=== PATIENT | male | born 1960 | race Caucasian/White ===

== ENCOUNTER 2024-11-29 13:39 | Outpatient (CLI) | payer BC, OTHER, SELFPAY ==
--- NOTE | 2024-11-29 | ECG_ITS ---
Test Date: 2024-11-29 14:23:14 Measurements Intervals [place] Rate: 62 P: 45 AR: 143 QRS: -4 QRSD: 92 T: 20 QT: 366 QTc: 374 Interpretive Statements SINUS RHYTHM NORMAL ECG No previous ECG available for comparison Electronically Signed On 11-30-2024 07:59:40 CDT by Adryan Ching M.D.
--- OUTSIDE RECORDS SUMMARY | 2024-11-29 13:52 | XMS_ITS | Data Portability ---
Author Organization Chantale STEVE Address [address] [facility] [place] [address] Care Team Providers Care Supervisor Drying And Softening Name Role Phone EDGARD POWER Primary Care Provider Assessment Encounter Date Assessment Date Assessment LastModified by Organization Details LastModified Time 05/10/2024 05/10/2024 [facility] Continue current therapy for now. all questions answered hypertension hyperlipidemia low testosterone have been discussed continues to follow up with his workman's compensation injuries and because of some issues with his extremities to [facility] with the [facility] follow up with me in 6 months Not available 05/12/2024 17:34:31 Plan of Treatment Reminders Order Date Submit Date Provider Last Modified By Organization Details Last Modified Time Details Appointments None record ed. Lab None record ed. Referral None record ed. Procedures None record ed. Surgeries None record ed. Imaging None record ed. Medication Orders None record ed. Patient TargetsNo targets recorded. Patient InstructionsNo instructions recorded. Reason for Referral None Reported. Problems Name Problem SNOMED Code Status Onset Date Resolution Date Notes Provider Name and Address Organization Details Recorded Time Hypertensive disorder 15724200 Active 2023 Chantelle Barboza MA null, [place] - [facility] 10:49:36 Hypercholester olemia 95567318 Active 2023 Chantelle Barbo[place] [facility] 10:49:47 Osteoporosis 99202857 Active 2023 Chantelle Barbo[place], [place] [facility] 10:51:40 Essential hypertension 16325382 Active 2023 Edgard Power MD Attn: Blossom perez,[address] [facility], [place], [address], [place] [facility] 4 17:32:51 Hyperlipidemia 16608830 Active 2023 Edgard Power MD Attn: Blossom perez,[address] [facility], [place], [address], [place] [facility] 4 17:32:52 Intracranial aneurysm 390138663 Active 2023 Edgard Power MD Attn: Blossom perez,[address] [facility], [place], [address], [place] [facility] 4 17:32:53 Testosterone level below reference range 664604053 Active 2023 Edgard Power MD Attn: Blossom perez,[address] [facility], [place], [address], [place] [facility] 17:32:54 Osteoarthritis 776530796 Active 2023 Edgard Power MD Attn: Blossom perez,[address] [facility], [place], [address], [place] [facility] 17:33:09 Hemorrhoids 86011895 Active 2023 Edgard Power MD Attn: Blossom perez,[address] [facility], [place], [address], [place] [facility] 17:33:30 Problem Notes None recorded. Procedures Surgical History Date Name Laterality Status Provider Name and Address Organization Details Recorded Time 1 Angioplasty With Stent completed LEONIE Borrero - [facility] 05/10/2024 10:53:44 Knee Surgery completed LEONIE Borrero - [facility] 05/10/2024 10:53:53 procedure on shoulder completed Chantelle Barboza [facility] 05/10/2024 10:54:06 Imaging Results None recorded. Procedure Notes None recorded. Medical Equipment None Reported. Allergies No known drug allergies Medications Name Sig Start Date Stop Date Status Note LastModified by Organization Details LastModified Time atorvastatin 20 mg tablet Take 1 tablet every day by oral route. active Not Available Not Available No t Available oxycodone-acet aminophen 5 mg-325 mg tablet TAKE 1 OR 2 TABLETS BY MOUTH EVERY 4 TO 6 HOURS NEEDED FOR PAIN active Not Available Not Available No t Available tamsulosin 0.4 mg capsule active Not Available Not Available N ot Available lisinopril 10 mg tablet Take 1 tablet every day by oral route. active Not Available Not Available No t Available diclofenac sodium 75 mg tablet,delayed release TAKE 1 TABLET BY MOUTH EVERY 12 HOURS NEEDED active Not Available Not Available No t Available bisacodyl 5 mg tablet,delayed release active Not Available Not Available Not Available simethicone 80 mg chewable tablet active Not Available Not Available Not Available aspirin 81 mg capsule Take 1 capsule every day by oral route. active Not Available Not Available No t Available Vitals Date Recorded Body weight Body mass index (BMI) Body height Heart rate Oxygen saturation Oxygen saturation in Arterial blood by Pulse oximetry Systolic blood pressure Diastolic blood pressure Provider Name and Address Organization Details Last Updated DateTime 4 904912. 33 g 34 kg/m2 172.72 cm 58 /min 97 % 97 % 124 mm[Hg] 70 mm[Hg] Chantelle [facility]boza [facility] 10:56:32 Social History Question Answer Notes LastModified by Organizat ion Details LastModified Time Tobacco Smoking Status Former Smoker Chantelle Barboza MA [facility] 05/10/2024 10:52:37 Do You Have An Advance Directive? No Information not available 05/10/2024 Are You Blind Or Do You Have Difficulty Seeing? No Information not available 05/10/2024 What Is Your Level Of Caffeine Consumption? Occasional Coffee, Tea Information not available 05/10/2024 In The 14 Days Before Symptom Onset, Have You Had Close Contact With A Laboratory-confir med COVID-19 While That Case Was Ill? No Information not available 05/10/2024 In The 14 Days Before Symptom Onset, Have You Had Close Contact With A Person Who Is Under Investigation For COVID-19 While That Person Was Ill? No Information not available 05/10/2024 Have You Been To An Area Known To Be High Risk For COVID-19? No Information not available 05/10/2024 Are You Deaf Or Do You Have Serious Difficulty Hearing? Yes Information not available 05/10/2024 What Type Of Diet Are You Following? REGULAR Information not available 05/10/2024 Are There Any Guns Present In Your Home? No Information not available 05/10/2024 What Was The Date Of Your Most Recent Tobacco Screening? 05/10/2024 Information not available 05/10/2024 What Is Your Relationship Status? Information not available 05/10/2024 Do You Use Your Seat Belt Or Car Seat Routinely? Yes Information not available 05/10/2024 Do You Have Smoke And Carbon Monoxide Detectors In Your Home? Yes Information not available 05/10/2024 Do You Use Sunscreen Routinely? Yes Information not available 05/10/2024 Has Tobacco Cessation Counseling Been Provided? No Information not available 05/10/2024 Sex: Male Functional Status Question Answer Note LastModified by Organizat ion Details LastModified Time Do you use any illicit or recreational drugs? No Information not available 05/10/2024 Do you or have you ever used any other forms of tobacco or nicotine? No Information not available 05/10/2024 What is your level of alcohol consumption? None Information not available 05/10/2024 Are you currently employed? Yes Information not available 05/10/2024 Are you able to care for yourself? 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 None Information not available 05/10/2024 Mental Status Question Answer Note LastModified by Organization D etails LastModified Time Do you feel stressed (tense, restless, nervous, or anxious, or unable to sleep at night)? [id number] Information not available 05/10/2024 Family History Relationship Description Onset Age of this Age Resolved Age Notes LastModified by Organization Details LastModified Time Father Harmful pattern of use of alcohol mebyma Not available 2023 10:51:50 Mother Dementia mebyma Not available 1 10:51:57 Medical History Condition Response Coronary Artery Disease N Other N Atrial Fibrillation N High Blood Pressure Y Kidney or Bladder Problems N Thyroid Problems N GI Problems N Depression N COPD N Blood Clots Y Have you had a mammogram in the last yea r? N Skin Problems N Anemia N Heart Attack ([place]) N Anxiety Disorder N Diabetes N Muscle, Joint, or Bone Problems Y Seizures/Epilepsy N Have you had a colonoscopy in the last 1 0 years? N Acid Reflux (GERD) N Cancer N Stroke Y Asthma N Allergies N Have you had a PSA blood test in the las t year? N High Cholesterol Y Hepatitis N Liver Disease N Headaches N Heart Failure N Osteoporosis Y Past Encounters Encounter ID Performer Location Encounter Start Date Encounter Closed Date Diagnosis/Indication Diagnosis SNOMED-CT Code Diagnosis ICD10 Code Diagnosis Note [id number] MD Yady Barnard (Adult Med) [address] [place] [phone] 05/10/2024 10:31:13 05/10/2024 12:06:32 Essential hypertension 73371533 I10 Hyperlipidemia 81405862 E78.5 Intracranial aneurysm 12 3360419 I67.1 stented Testostero ne level below reference range 494853752 R89.1 Osteoarthritis 001526532 M19.90 Hemorrhoids 69694383 K64 .9 Health Concerns Section Related Observation LastModified by Organization Detai ls LastModified Time None Recorded Concern Status LastModified by Organization Details LastModified Time None Recorded Advance Directives Directive N: Payers Encounter Date Sequence Insurance Name Policy Number Policy Ull[place] Covered Member ID [place] Member ID Guarantor Name 05/10/2024 1 [place] [id number] Domingo Thakkar [id number] Domingo Thakkar 05/10/2024 2 FOR LIFE () Domingo Thakkar [id number] Domingo Thakkar Notes Date Note Type Note Provider Name and Address Organization Details Recorded Time 05/10/2024 text/html 64-year-old arvindi penelope in with a history of hyperlipidemia hypertension BPH who also has problems that are service connected he goes to the [place] he has some type of undisclosed problems with arms and legs then he says he has 80% service-connected for he also works for [employer] and suffered some type of fall and injury for which now he has a right shoulder and right knee issue that is being handled by work comp. Also history of low testosterone level in the past history of stroke secondary to a pseudo aneurysm that was stented at [facility] he also uses CPAP for AMY. Problem with hemorrhoidshypertens ion. Hyperlipidemia. History of pseudo aneurysm stented at [facility]. Service can activity for problems with arms and legs. Recent Workman's compensation injury on right shoulder and right leg. Low testosterone. BPH. Sleep apnea. Hemorrhoids.surgerie s ACL left knee and left shoulder surgery. Family history mother dementia and lung cancer. 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, [place], [address], [place] [facility] 05/12/2024 17:34:59
--- OUTSIDE RECORDS SUMMARY | 2024-11-29 13:52 | XMS_ITS ---
Author Name [facility] Organization [facility] Address [address] [place] [id number] Care Team Providers Care Aluminum Molder Name Role Phone CAROLYN PRAKASH Primary Care Provider Unavailabl e Selected Encounter This section includes the information on record at [place] for the Encounter. Date/Time Encounter Type Encounter Description Reason Provider Source May 28, 2024 09:30 AM OFF/OP CNSLTJ NEW/EST MOD 40 DERMATOLOGY ICD-10-CM L73.9 Follicular disorder, unspecified GIANFRANCO FREEDMAN IHRadha Encounter Template Text not used by [place] Assessments - Encounter Diagnoses This section includes the primary and secondary diagnoses documented for the Encounter. Date/Time Primary/Secondary Diagnosis Diagnosis Name Provider Source May 28, 2024 09:32 AM PRIMARY Follicular disorder, unspecified TERE FREEDMAN [facility] May 28, 2024 09:32 AM SECONDARY Encounter for screening for malignant neoplasm of skin TERE FREEDMAN [facility] May 28, 2024 09:32 AM SECONDARY Other melanin hyperpigmentation TERE FREEDMAN [facility] May 28, 2024 09:32 AM SECONDARY Other seborrheic keratosis TERE FREEDMAN [facility] Encounter Notes: All associated encounter notes This section contains the clinical notes associated to the Encounter. Date/Time Encounter Note(s) Provider Source May 28, 2024 09:18 AM DERMATOLOGY CONSUL T: LOCAL TITLE: DERMATOLOGY CONSULT [facility] STANDARD TITLE: DERMATOLOGY CONSULT DATE OF NOTE: MAY 28, 2024@09:18 ENTRY DATE: MAY 28, 2024@09:19:01 AUTHOR: GIANFRANCO FREEDMAN EXP COSIGNER: BEATRIZ ESTEVEZ URGENCY: STATUS: COMPLETED DERMATOLOGY CONSULT [facility] Has ADDENDA DERM CONSULT NOTE MARIA DEL CARMEN MELVIN is a 64 year MALE with no history of skin cancer presenting for CONSULTATION OF: Folliculitis kind of rash on all over back with minute pustules Today: - Scaly spots on arms - acne like rash on bakc that comes and goes Allergies: Patient has answered NKA ROS: all systems reviewed and were negative except as noted in the HPI OBJECTIVE Physical Examination - stuck on appearing brown papules on trunk/extremitites - red inflammatory pustule on back and chest - piedra macules scattered on trunk and extremitites otherwise: General Appearance: Well Appearing MALE, NAD Mood/Affect: pleasant/appropriate Face: WNL Ears: WNL Nose: WNL Forehead: WNL Scalp, Hair: no scale Neck: WNL Chest: WNL Abd: WNL Back: WNL Upper Extremities: WNL Nails/Hair: WNL ASSESSMENT AND PLAN # Folliculits - Start BPO wash and clinda lotion daily - Discussed possibly trying ketoconazole shampoo in future if not improving - PCP may refill these medications # Seborrheic Keratosis - benign, reasured # Lentigines - Patient reassured. Photoprotection including use of over the counter sunscreen SPF 30+ was reviewed. Recommend monthly self-skin checks and regular MD skin checks. -No additional lesions suspicious for skin cancer on areas examined. Pt phone: [phone] RTC as needed, patient encouraged to reach out if any new or change growths on skin. /kandice/ GIANFRANCO FREEDMAN III DERMATOLOGY RESIDENT Signed: 05/28/2024 09:32 /kandice/ BEATRIZ ESTEVEZ MD Dermatology Attending Physician Cosigned: 05/28/2024 10:36 05/28/2024 ADDENDUM STATUS: COMPLETED Patient interviewed and examined. Discussed case with resident. Agree with history, physical examination, assessment, and plan. Folliculitis on back. Favor bacterial over Pityrosporum but patient does endorse intermittent itching in the affected area. If not improving on topical antibiotics, consider topical antifungal. /kandice/ BEATRIZ ESTEVEZ MD Dermatology Attending Physician Signed: 05/28/2024 10:37 GIANFRANCO FREEDMAN [facility]
--- OUTSIDE RECORDS SUMMARY | 2024-11-29 13:52 | XMS_ITS | Data Portability ---
Author Organization [place] - [facility], Main Office Address [address] [place] [address] Assessment Encounter Date Assessment Date Assessment LastModified by Organization Details LastModified Time 04/27/2023 04/27/2023 HPI: 63-year-old male came in today for evaluation of his bilateral knee pain. He has been having pain left knee for years. He had ACL reconstruction by Dr. Son in 2018. since that time the knee has continued to be a little bit sore and painful for him. More recently in the last 6 weeks the right knee has started being symptomatic for him. It is painful or uncomfortable for him to get up from a seated position. Stairs are very painful. He has had no previous surgery or trauma to the right knee. 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 Patient will take ibuprofen 400mg when he is having pain in the knees and this will help quite a bit. Just does not take this regularly. Physical exam: 63-year-old male alert pleasant. He is 5 ft 6 221 lb his BMI is 35.7. He has irvs-dh-zmyfrtfm effusions in both knees. He has moderate pain with patellofemoral grind in both knees. Moderate tenderness over the medial joint lines to palpation both knees. No lateral joint line tenderness bilaterally. Hip range of motion is full without discomfort bilaterally. No swelling in either lower extremity. 2+ dorsalis pedis pulse in both feet. Hip range of motion is full without discomfort bilaterally. Negative Stinchfield maneuver bilaterally. Impression: 63-year-old male who has zkgz-iu-hmhsrqwf medial compartment osteoarthritis on the PA flexion view as well as both patellofemoral joints. I discussed x-ray findings with him. I discussed options including anti-inflammatori es as well as cortisone injections. He has had cortisone injections in the left knee in the past not on the right. At this point he is content to start utilizing the ibuprofen on a more regular basis to see if this will improve his symptoms. He feels that when he does take the ibuprofen helped quite a bit and he is just going to start taking it on a more regular basis to see if this controls his symptoms. If he has a flare-up in the future the option of cortisone injection is always there for him and he will keep that in mind. 30 minutes was spent treated patient more half of this in abot-gi-iwfy conversation [email or web address] Not available 04/27/2023 12:42:56 Plan of Treatment Reminders Order Date Submit Date Provider Last Modified By Organization Details Last Modified Time Details Appointments None record ed. Lab None record ed. Referral None record ed. Procedures None record ed. Surgeries None record ed. Imaging XR, knee 023 04/27/20 [email or web address] [facility], [address] [place] [address], [place], [address], 14:50:11 Medication Orders None record ed. Patient TargetsNo targets recorded. Patient InstructionsNo instructions recorded. Reason for Referral None Reported. Results Created Date Observation Date Name Description Value Unit Range Abnormal Flag Note LastModifiedBy Organization Detail LastModifiedTime 04/27/20 XR, knee No observ ation record ed. [email or web address] [facility] [address], [place], [address], 04/27/2023 12:39:43 Result Notes None recorded. 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 3745355395626 9106 Active 2020 Not Available [facility] 3 13:52:38 Benign prostatic hyperplasi a 264113482 Active 2020 Not Available [facility] 3 13:52:38 Knee pain Active Not Available [facility] 3 13:52:39 Hyperlipid emia 95032895 Active 2020 Not Available [facility] 3 13:52:39 Essential hypertensi on 88974890 Active 2020 Not Available [facility] 13:52:39 Pain in limb 70121751 Active Not Available [facility] 13:52:39 Pain of bilateral knee joints 7354952333311 04 Active 2022 Kenzie Cavazos, RMUzma null, [place] - [facility] 11:18:46 Problem Notes None recorded. Procedures Surgical History Date Name Laterality Status Provider Name and Address Organization Details Recorded Time reconstruction of anterior cruciate ligament of knee joint completed Not Available [facility] 09/14/2022 13:52:07 Stent completed Not Available [facility] 07/2022 13:52:07 extraction of wisdom tooth completed Not Available [facility] 09/14/2022 13:52:07 Shoulder completed Not Available [facility] 13:52:07 Tonsillectomy completed Not Available [facility] 09/14/2022 13:52:07 Imaging Results Imaging Date Name Status LastModified by Organiz ation Details LastModified Time 04/27/2023 XR, knee completed [email or web address] [facility] [address], [place], [address], 04/27/2023 12:39:43 Procedure Notes None recorded. Medical Equipment None Reported. Medications Name Sig Start Date Stop Date Status Note LastModified by Organization Details LastModified Time atorvastatin 40 mg tablet 04/27 completed Not Available Not Available Not Available atorvastatin 80 mg tablet active Not Available Not Available Not Available doxycycline hyclate 100 mg capsule Take 1 capsule twice a day by oral route for 7 days. 04/27 completed Not Available Not Available Not Available azithromycin 250 mg tablet 05/19 completed Not Available Not Available Not Available hydrocodone 5 mg-acetamino phen 325 mg tablet 05/19 completed Not Available Not Available Not Available lisinopril 20 mg tablet active Not Available Not Available Not Available prednisone 20 mg tablet 05/19 completed Not Available Not Available Not Available ketorolac 10 mg tablet 05/19 completed Not Available Not Available Not Available tamsulosin 0.4 mg capsule Take 1 capsule every day by oral route. 04/27 completed Not Available Not Available Not Available meclizine 25 mg tablet active Not Available Not Available No t Available diclofenac sodium 75 mg tablet,delay ed release 05/19 completed Not Available Not Available Not Available cefuroxime axetil 500 mg tablet 05/19 completed Not Available Not Available Not Available levofloxacin 500 mg tablet 05/19 completed Not Available Not Available Not Available hydrocodone 10 mg-chlorphen iramine 8 mg/5 mL oral susp extend.rel 12hr 05/19 completed Not Available Not Available Not Available lisinopril 40 mg tablet active Not Available Not Available Not Available cefdinir 300 mg capsule 05/19 completed Not Available Not Available Not Available fluticasone propionate 50 mcg/actuatio n nasal spray,suspen meet 05/19 completed Not Available Not Available Not Available Adult Low Dose Aspirin 81 mg tablet,delay ed release Take 1 tablet every day by oral route. 2020 active Not Available Not Available Not Avai lable AndroGel 20.25 mg/1.25 gram per pump act. (1.62 %) transdermal gel 05/19 completed Not Available Not Available Not Available Vitals Date Recorded Body mass index (BMI) Body height Heart rate Body temperature Body weight Systolic blood pressure Diastolic blood pressure Provider Name and Address Organization Details Last Updated DateTime 1 33 kg/m2 172.72 cm 58 /min 96.8 [degF] 20944.5 4 g 120 mm[Hg] 80 mm[Hg] Not Available [facility] 3 13:52:12 Date Recorded Body height Body mass index (BMI) Body weight Provider Name and Address Organization Details Last Updated DateTime 04/27/2023 167.64 cm 35.7 kg/m2 352441.91 g JEFF Ortiz [place] [facility] 04/27/2023 12:03:44 Social History Question Answer Notes LastModified by Organizat ion Details LastModified Time Tobacco Smoking Status Former Smoker Not Available [facility] 09/14/2022 13:51:59 Do You Have An Advance Directive? No [id number] Information not available 09/14/2022 What Is Your Level Of Caffeine Consumption? Moderate [id number].[id number] Information not available 09/14/2022 In The 14 Days Before Symptom Onset, Have You Had Close Contact With A Laboratory-confirm ed COVID-19 While That Case Was Ill? No [id number].[id number] 6521 Information not available 09/14/2022 In The 14 Days Before Symptom Onset, Have You Had Close Contact With A Person Who Is Under Investigation For COVID-19 While That Person Was Ill? No [id number] 3137 Information not available 09/14/2022 What Type Of Diet Are You Following? REGULAR [id number].[id number] 5237 Information not available 09/14/2022 When Did You Quit Smoking? 16+yearssince lastcigarette MIGRATION.006490 8225 Information not available 09/14/2022 Do You Have A Medical Power Of Calender Roll Operator? No [id number].807077 9424 Information not available 09/14/2022 What Was The Date Of Your Most Recent Tobacco Screening? 05/19/2021 [id number].[id number] 4095 Information not available 09/14/2022 At What Age Did You Start Smoking Tobacco? 20 MIGRATION.061302 3332 Information not available 09/14/2022 Have You Recently Traveled Abroad? No [id number].988855 3416 Information not available 09/14/2022 Do You Have Any Dietary Restrictions? No MIGRATION.172857 4121 Information not available 09/14/2022 Sex: Unknown Functional Status Question Answer Note LastModified by [employer] ion Details LastModified Time Do you use any illicit or recreational drugs? No MIGRATION.2712914 026 Information not available 09/14/2022 Do you or have you ever used any other forms of tobacco or nicotine? No MIGRATION.4147982 026 Information not available 09/14/2022 What is your level of alcohol consumption? Occasional [id number].0688684 026 Information not available 09/14/2022 What is your exercise level? Occasional [id number].[id number] 026 Information not available 09/14/2022 Mental Status None recorded. Family History Relationship Description Onset Age of this Age Resolved Age Notes LastModified by Organization Details LastModified Time Mother Dementia [id number] Not available 09/14/2022 13:52:08 Sister Heart disease Not available 2022 11:14:12 Medical History Condition Response ARTHRITIS Y USE OF BLOOD THINNERS Y STROKE/TIA Y Past Encounters Encounter ID Performer Location Encounter Start Date Encounter Closed Date Diagnosis/Indication Diagnosis SNOMED-CT Code Diagnosis ICD10 Code Diagnosis Note [id number] Edgard Power [facility] [address] [facility], [facility] [address] [place] [address] 05/19/2021 00:00:00 05/19/2021 22:22:02 [id number] Adrian Hitchcock MD [facility] [address] [place] [address] 04/27/2023 10:45:58 04/27/2023 12:45:00 Pain of bilateral knee joints 9293230053 53943 M25.561 Health Concerns Section Related Observation LastModified by Organization Detai ls LastModified Time None Recorded Concern Status LastModified by Organization Details LastModified Time None Recorded Advance Directives Directive N: Payers Encounter Date Sequence Insurance Name Policy Number Policy U[place] Covered Member ID Ull[place] Member ID Guarantor Name 04/27/2023 1 [place] [id number] Domingo Thakkar [id number] Domingo Thakkar 04/27/2023 2 [facility] () Domingo Thakkar [id number] Domingo Thakkar
--- OUTSIDE RECORDS SUMMARY | 2024-11-29 13:52 | XMS_ITS | Clinical Summary ---
Author Organization [facility] Address [address] [place] [address] Care Team Providers Care Curriculum Development Manager Name Role Phone Sheldon Bonilla MD Primary Care Provider [phone] Source Comments [facility],non-owned Affiliates and Associated Physician Practices is amultiple site organization consisting of ambulatory clinics and hospital sitesin [place], [place], [place] and [place]. This disclosure is being madepursuant to the Care Everywhere program and may not contain all information available regarding this patient. Last updated 18.[facility] Allergies No known active allergies Medications * Be aware that medications may not be up to date on this document. Alwaysverify current medications with the patient. diclofenac sodium EC (Voltaren) 75 MG tablet Take 1 (one) tablet by mouth every 12 hours as needed 20 tablet 05/01/2024 Active Social History Tobacco Use Types Packs/Day Years Used Date Smoking Tobacco: Never Assessed Sex and Gender Information Value Date Recorded Sex Assigned at Not on file Legal Sex Male 2:58 PM CDT Gender Identity Not on file Sexual Orientation Not on file Last Filed Vital Signs Vital Sign Reading Time Taken Comments Blood Pressure 130/91 05/01/2024 7:26 PM CDT Pulse 68 05/01/2024 7:26 PM CDT Temperature 36.7 C (98.1 F) 05/01/2024 7:26 PM CDT Respiratory Rate 18 05/01/2024 7:26 PM CDT Oxygen Saturation 96% 05/01/2024 7:26 PM CDT Inhaled Oxygen Concentration - - Weight - - Height - - Body Mass Index - - Plan of Treatment Health Maintenance Due Date Last Done Comments COLOGUARD (AGES 45-75) - COL ON CA SCREENING 1962 COLON MONITORING 1962 COLONOSCOPY - COLON CA SCREENING 1962 CT COLONOGRAPHY - COLON CA SCREENING 1962 Colorectal Cancer Screening 1962 FIT - COLON CA SCREENING 1962 FLEX SIG - COLON CA SCREENING 1962 LIPID TESTING 1962 HIV SCREENING 1977 HEPATITIS C SCREENING 03/26/1980 DTAP/TDAP/TD VACCINES (1 - Tdap) 1981 PNEUMOCOCCAL VACCINE 50+ (1 of 1 - PCV) 2012 ZOSTER VACCINE (1 of 2) 2012 Respiratory Syncytial Virus (RSV) Vaccine Pt: or over 60 yrs (1 - Risk 60-74 years 1-dose series) 2022 COVID-19 VACCINE ( - 2023-2 5 season) 2024 DEPRESSION SCREENING 07/17/2024 INFLUENZA VACCINE (Season Ended) 2025 05/20/20 09 HEPATITIS B VACCINE Aged Out No longe r eligible based on patient's age to complete this topic HIB VACCINE Aged Out No longer eligi ble based on patient's age to complete this topic HPV VACCINE Aged Out No longer eligi ble based on patient's age to complete this topic MENINGOCOCCAL (Group B) VACC INE SHARED DECISION-MAKING Aged Out No longer eligibl e based on patient's age to complete this topic MENINGOCOCCAL GROUPS A/C/Y/W VACCINE Aged Out No longer eligible b ased on patient's age to complete this topic Insurance [facility] Address: [facility] [id number] [place] [address] Member Subscriber Plan / Payer (Ef fective 2024-Present) Name:Ariane Domingo Purcell Member ID:Not on file Relation to Subscriber:Employee Name:[id number] JAMES Date of :1897 (Home) Address: [place] [address] Payer ID:Not on file Group ID:Not on file Type:Worker's Comp Address: [place] [id number] [employer] Care Teams Curriculum Development Manager Relationship Specialty Start Date End Date Sheldon Bonilla MD [address] [place] [address] PCP - General 01/07/19
--- OUTSIDE RECORDS SUMMARY | 2024-11-29 13:52 | XMS_ITS | Encounter Summary ---
Author Name [facility] Address [address] [place] [address] Care Team Providers Care Gaming Director Name Role Phone CAROLYN PRAKASH Primary Care Provider Unavailabl e Selected Encounter This section includes the information on record at [place] for the Encounter. Date/Time Encounter Type Encounter Description Reason Pro vider Source May 23, 2024 02:41 PM Outpatient Encounter ADMIN PAT ACTIVTIES (MASNONCT) IHE Encounter Template Text not used by [place] Plan of Treatment: Future Appointments (+ 6 months) and Future Tests (+/- 45 days) The Plan of Treatment section includes future care activities for the patient from all [place] treatmentfacilities. This section includes future appointments and future orders which are active, pending or scheduled. Future Appointments This section includes appointments that were scheduled to occur 6 months from the date of the Encounter, up to a maximum of 20 appointments. The data comes from all [place] treatment facilities. Appointment Date/Time Appointment Type Appointme nt Facility Name May 28, 2024 09:30 AM AMBULATORY - MEDICINE [facility] Social History: Smoking Status (Most current) and Tobacco Use (All prior to encounter date) This section includes the most current, and the historical, smoking and tobacco- related health factors from the [facility] facility where the Encounter took place. Current Smoking Status This section includes the most current smoking, or tobacco-related health factor, from the [place] facility where the Encounter took place. Date/Time Current Smoking Status Comment Facil gian Dec 18, 2006 09:44 AM QUIT TOBACCO >7 YEARS AGO [facility] Encounter Notes: All associated encounter notes This section contains the clinical notes associated to the Encounter. Date/Time Encounter Note(s) Provider Source May 23, 2024 02:41 PM ADMINISTRATIVE NOT E: LOCAL TITLE: ADMINISTRATIVE STL STANDARD TITLE: ADMINISTRATIVE NOTE DATE OF NOTE: MAY 23, 2024@14:41 ENTRY DATE: MAY 23, 2024@14:41:34 AUTHOR: HORTENCIA TRUJILLO EXP COSIGNER: URGENCY: STATUS: COMPLETED ADMINISTRATIVE STL Has ADDENDA DOMINGO THAKKAR [address] [place] [address] Dear Domingo Thakkar, [email or web address] Thank you for choosing the [facility] as your primary choice for health care. We are attempting to contact you to schedule the: Airborne Hazard and Open Burn Pit Registry Exam Please call us at [phone] to speak to us regarding making an appointment In the [facility]. If you received this letter after you have spoken to us, please disregard this letter. Sincerely, Environmental Health Registry Program /kandice/ HORTENCIA TRUJILLO [facility] Signed: 05/23/2024 14:42 10/04/2024 ADDENDUM STATUS: COMPLETED 2nd or more attempt to contact the by phone and letter to offer the Environmental Health Registry Airborne Hazard and Open Burn Pit Examination. /edna TRUJILLO [facility] Signed: 10/04/2024 12:59 HORTENCIA TRUJILLO [facility]
--- OUTSIDE RECORDS SUMMARY | 2024-11-29 13:52 | XMS_ITS | Encounter Summary ---
Author Organization [facility] Address [address] [facility] [place] [address] Care Team Providers Care Director Pharmacology Name Role Phone Sheldon Bonilla MD Primary Care Provider [phone] Encounter Details Date Type Department Care Team (Late st Contact Info) Description 01/08/2019 Lab Requisition [facility] [address] [place] [address] Regine Flores DO [address] [facility] [address] [place] [address] Social History Tobacco Use Types Packs/Day Years Used Date Smoking Tobacco: Never Assessed Sex and Gender Information Value Date Recorded Sex Assigned at Not on file Legal Sex Male 2:58 PM CDT Gender Identity Not on file Sexual Orientation Not on file documented as of this encounter Plan of Treatment Not on file documented as of this encounter Procedures Procedure Name Priority Date/Time Associated Diagnosis Comments DERMATOPATHOLOGY Routine 01/07/2019 12:0 0 AM CDT documented in this encounter Results * DERMATOPATHOLOGY (01/07/2019 12:00 AM CDT) Case Report Dermatopathology Report Case: [id number] Authorizing Provider: Regine Flores DO Collected: 01/07/2019 12:00 AM Pathologist: Shell Damon MD Received: 01/08/2019 07:27 AM Specimens: A) - Skin, left back B) - Skin, right upper arm 12:[address] [facility] D[facility]ORAT[facility] Final Diagnosis Specimen A. SKIN, left back: BENIGN VERRUCOUS KERATOSIS (L82.1) Specimen B. SKIN, right upper arm: BENIGN VERRUCOUS KERATOSIS (L82.1) 12:50 PM T DERMATOPATHOLOGY LABORATORY Clinical History A-B: ISK R/O atypia. 12:50 PM T DERMATOPATHOLOGY LABORATORY Gross Description Specimen A: Received is one formalin filled container labeled with the patient's name and designated left back. The specimen consists of a shave measuring 3u9u6fr. Jar 0. Specimen B: Received is one formalin filled container labeled with the patient's name and designated right upper arm. The specimen consists of a shave measuring 81q7w3ii. Jar 0. 12:[address] [facility] DERMATOPATHOLOGY [facility]ORATORY Microscopic Description Specimen A. SKIN, left back: Sections show hyperkeratosis, papillomatosis, hypergranulosis, and acanthosis. These histological findings can be seen in a verruca vulgaris or a seborrheic keratosis. Specimen B. SKIN, right upper arm: Sections show hyperkeratosis, papillomatosis, hypergranulosis, and acanthosis. These histological findings can be seen in a verruca vulgaris or a seborrheic keratosis. 12:50 PM T DERMATOPATHOLOGY LABORATORY Disclaimer An external and internal positive and negative controls are appropriate for the histochemical, immunohistochemical and immunofluorescence stain(s) in this case (if any), except where stated explicitly. The performance characteristics of the stain(s) cited in this report were developed and its performance characteristic determined by the Dermatopathology Laboratory at [facility], directed by Dr. Jaelyn Valdez. These tests need not be, and therefore are not, approved by the [place] Food and Drug Administration. The tests are used for clinical purposes. Billing Codes Specimen Charges Stain Charges 42109 93195 1 1 12:50 PM CDT DERMATOPATHOLOGY LABORATORY Embedded Images 12:50 PM T DERMATOPATHOLOGY LABORATORY Pathology/Cytology TISSUE SPECIMEN FROM SKIN / Unknown 01/07/2019 01/08/2019 7:27 AM CDT Miscellaneous samples (specimen) TISSUE SPECIMEN FROM SKIN / Unknown 01/07/2019 01/08/2019 7:27 AM CDT us Regine Erickaketan Flores DO LAB - PATHOLOGY/CYTOLOGY ORDERABLES Final Result DERMATOPATHOLOGY LABORATORY [facility] - Department of Dermatology [address] [place] [address] [address] [phone] documented in this encounter Visit Diagnoses Not on filedocumented in this encounter Care Teams Director Pharmacology Relationship Specialty Start Date End Date Sheldon Bonilla MD [address] [place] [address] PCP - General 01/07/19 documented as of this encounter
--- OUTSIDE RECORDS SUMMARY | 2024-11-29 13:52 | XMS_ITS | Continuity of Care Document ---
Author Organization [facility] Address [address] [place] [address] Phone Care Team Providers Care Audit Clerks Supervisor Name Role Phone Benavidez OD, Erlin Unavailable Unavailable Procedures Procedure Date Eye Exam, New Patient Refraction Advance Directives Directive Yes / No Effective Date File Name No Information Encounters Encounter Description Practice Location Reason(s) For Visit Diagnoses Date Provider Providers Copied on Encounter [facility], [address], [place], [place], [address], [place] tel:[phone] [facility] [place] No Information [phone] Benavidez OD Erlin. [address] , [address], [place], [address], [place]. tel:[phone] Family History Family Member Type Diagnosis Age At Onset No Information Payers Payer name Insurance type Covered constitution party ID Authoriza tion(s) [employer] Plan CI [id number] Social History Type Description Quantity Date Captured Comments Sex Male Smoking Status No Information Chief Complaint And Reason For Visit No Information Reason For Referral Reason For Referral No Information History Of Present Illness Encounter Date Complaint History Of Prese nt Illness No Information Functional Status Date Functional Assessmen t No Information Instructions Date Instruction Additional Infor mation No Information Assessments Type Assessment Date No Information Patient Care Teams Name Effective Dates (start - stop) Status Members No Information
--- OUTSIDE RECORDS SUMMARY | 2024-11-29 13:53 | XMS_ITS | Continuity of Care Document ---
Author Name [facility] Organization [facility] Care Team Providers Care Food Service Name Role Phone [facility] Unavailable Unavailable Problems Combined list of problems from Department of [facility] and [facility] facilities. It does not include entries that were removed or entered in error. Problem Status Onset Date Problem Type Date of Resolution Comments Source Aneurysm * (ICD-9-CM 442.9) Active Condition [facility] Benign enlargement of prostate Active Condition [facility] Essential hypertension Active Condition [facility] Exposure to potentially hazardous substance Active Condition [facility] HYPERCHOLESTEROLEMIA Active Condition [facility] Hyperlipidemia Active Condition [facility] Liver function tests abnormal Active Condition [facility] Obesity Active Condition [facility] Obstructive sleep apnea Active Condition [facility] Prediabetes Active Condition [facility] Vertigo Active Condition [facility] Diagnosis: ICD-10-CM L73.9 Follicular disorder, unspecified Active Diagnosis [facility] Diagnosis: ICD-10-CM Z71.9 Counseling, unspecified Active Diagnosis [facility] Diagnosis: ICD-10-CM I10 Essential (primary) hypertension Active Diagnosis [facility] Diagnosis: ICD-10-CM Z12.11 Encounter for screening for malignant neoplasm of colon Active Diagnosis [facility] Medications Combined list of outpatient medications from Department of [facility] and [facility] facilities.Medications provided include 1) outpatient medications from the last 15 months, and 2) patient-reported medications. Medication Details Route Status Patient Instructions Prescription Expires Prescription Number Last Dispense Date Ordering Provider Order Date Order Qty Source ASPIRIN 81MG TAB,EC TAKE ONE TABLET BY MOUTH ONCE A DAY ORAL ACTIVE OLINDA,KAMARI A D 2021 [facility] atorvastati n (U/D) 80 MG ORAL TAB TAKE ONE-HALF TABLET BY MOUTH EVERY EVENING TO LOWER CHOLESTE ROL 04/25/2024 [id number] CAROLYN PRAKASH 2023 45 [facility] Divis[facility] n ATORVASTATI N CA 80MG TAB TAKE ONE-HALF TABLET BY MOUTH EVERY EVENING TO LOWER CHOLESTE ROL ORAL ACTIVE 04/06/2025 [id number] 4 KAMARI PRAKASH 2023 45 [facility] ATORVASTATI N CA 80MG TAB TAKE ONE-HALF TABLET BY MOUTH EVERY EVENING TO LOWER CHOLESTE ROL ORAL DISCONT INUED 04/25/2024 [id number] 4 KAMARI PRAKASH 2022 45 [facility] BENZOYL PEROXIDE 5% WASH WASH SMALL AMOUNT TO AFFECTED AREA(S) ONCE A DAY FOR FOLLICUL ITIS TOPICA L ACTIVE 05/29/2025 [id number] 4 DL FREEDMAN 2023 150 [facility] CLINDAMYCIN PO4 1% LOTION APPLY LIBERALL Y TO AFFECTED AREA(S) ONCE A DAY FOR FOLLICUL ITIS TOPICA L ACTIVE 05/29/2025 [id number] DL FREEDMAN 2023 60 [facility] DICLOFENAC NA 1% GEL,TOP APPLY 4 GM TO AFFECTED AREA(S) FOUR TIMES A DAY NEEDED DO NOT EXCEED MORE THAN 16 GRAMS DAILY TO ANY LOWER EXTREMIT Y JOINT. NOT MORE THAN 8 GRAMS DAILY TO ANY UPPER EXTREMIT Y JOINT. MAX 32GM/DAY OVER ALL JOINTS. (MEASURE DOSE WITH RULER ATTACHED INSIDE BOX) TOPICA L ACTIVE 04/06/2025 [id number] 4 KAMARI PRAKASH D 2023 300 [facility] FLOMAX (BRAND) 0.4 MG ORAL CAP TAKE ONE CAPSULE BY MOUTH EVERY EVENING APPROXIM ATELY 30 MINUTES AFTER THE SAME MEAL EACH DAY (FOR PROSTATE ) 04/25/2024 [id number] 4 CAROLYN PRAKASH 2023 90 [facility] Divisio n FLOMAX (BRAND) 0.4 MG ORAL CAP TAKE ONE CAPSULE BY MOUTH EVERY EVENING APPROXIM ATELY 30 MINUTES AFTER THE SAME MEAL EACH DAY (FOR PROSTATE ) 04/25/2024 [id number] 4 CAROLYN PRAKASH 2023 30 [facility] Divis[facility] n lisinopril (U/D) 20 MG ORAL TAB TAKE ONE-HALF TABLET BY MOUTH ONCE A DAY FOR HEART OR BLOOD PRESSURE 04/25/2024 [id number] CAROLYN PRAKASH 2023 45 [facility] Divis[facility] n LISINOPRIL 20MG TAB TAKE ONE-HALF TABLET BY MOUTH ONCE A DAY FOR HEART OR BLOOD PRESSURE ORAL ACTIVE 04/06/2025 [id number] 4 KAMARI PRAKASH 2023 45 [facility] LISINOPRIL 20MG TAB TAKE ONE-HALF TABLET BY MOUTH ONCE A DAY FOR HEART OR BLOOD PRESSURE ORAL DISCONT INUED 04/25/2024 [id number] 4 KAMARI PRAKASH 2022 45 [facility] TAMSULOSIN HCL 0.4MG CAP TAKE ONE CAPSULE BY MOUTH EVERY EVENING APPROXIM ATELY 30 MINUTES AFTER THE SAME MEAL EACH DAY (FOR PROSTATE ) ORAL ACTIVE 04/06/2025 [id number] 4 KAMARI PRAKASH 2023 90 [facility] TAMSULOSIN HCL 0.4MG CAP TAKE ONE CAPSULE BY MOUTH EVERY EVENING APPROXIM ATELY 30 MINUTES AFTER THE SAME MEAL EACH DAY (FOR PROSTATE ) ORAL DISCONT INUED 04/25/2024 [id number] 4 KAMARI PRAKASH 2023 90 [facility] TAMSULOSIN HCL 0.4MG CAP TAKE ONE CAPSULE BY MOUTH EVERY EVENING APPROXIM ATELY 30 MINUTES AFTER THE SAME MEAL EACH DAY (FOR PROSTATE ) ORAL DISCONT INUED 04/25/2024 [id number] 4 KAMARI PRAKASH 2022 30 [facility] Immunizations Combined list of available immunizations from the Department of Defense and Veterans Affairs facilities. Immunization Series Date Given Administered By Site Reaction Lot Number CVX Code Drug Oncology Consultant Status Comments Source TDAP 2020 115 complet ed [facility] INFLUENZA, UNSPECIFIED FORMULATION 2008 88 complet ed [facility] Results Combined list of recent chemistry, hematology and other laboratory results from Department of Defense and Veterans Affairs, ranging from 15 months to all on record, depending upon the facility. Order Name Results Value Reference Range Date Interpretation Specimen Comments Source OCCULT BLOOD FIT X1 SCREEN HEMOGLOBIN .GASTROINT ESTINAL.LO WER [PRESENCE] IN STOOL BY IMMUNOASSA Y Negative 04/13 Specimen Type: FECES No comment entered. Ordering Provider: CAROLYN PRAKASH Report Released Date/Time: Apr 05, 2024 11:33 AM Reporting Lab: [facility] [address] [place] [phone] Performing Lab: [address] [address] [facility] TSH (MA-PB) THYROTROPI N [UNITS/VOL UME] IN SERUM OR PLASMA 1.671 u[IU]/mL 0.47 - 5 04/02 Specimen Type: SERUM Comment: The listed sex of this patient may not be a typical indication for this test. Therefore, reference ranges or interpretiv e criteria listed may not be valid. Clinical correlation suggested. Ordering Provider: CAROLYN PRAKASH Report Released Date/Time: Apr 25, 2023 11:15 AM Reporting Lab: [facility] [address] [place] [phone] Performing Lab: [facility] [address] [place] [phone] [facility] COMPREHE NSIVE METABOLI C PANEL CREATININE [MASS/VOLU ME] IN SERUM OR PLASMA 0.92 mg/dL 0.7 - 1.3 04/02 Specimen Type: PLASMA Comment: No hemolysis noted. Ordering Provider: CAROLYN PRAKASH Report Released Date/Time: Apr 25, 2023 11:15 AM Reporting Lab: [facility] [address] [place] [phone] Performing Lab: [facility] [address] [place] [phone] [facility] COMPREHE NSIVE METABOLI C PANEL UREA NITROGEN [MASS/VOLU ME] IN SERUM OR PLASMA 16.5 mg/dL 9.0 - 25.0 04/02 Specimen Type: PLASMA Comment: No hemolysis noted. Ordering Provider: CAROLYN PRAKASH Report Released Date/Time: Apr 25, 2023 11:15 AM Reporting Lab: [facility] [address] [facility] [address] Performing Lab: [address] [address] [facility] COMPREHE NSIVE METABOLI C PANEL GLUCOSE [MASS/VOLU ME] IN SERUM OR PLASMA 110 mg/dL 72 - 99 04/02 H Specimen Type: PLASMA Comment: No hemolysis noted. Ordering Provider: CAROLYN PRAKASH Report Released Date/Time: Apr 25, 2023 11:15 AM Reporting Lab: [address] [address] Performing Lab: [address] [address] [facility] COMPREHE NSIVE METABOLI C PANEL SODIUM [MOLES/VOL UME] IN SERUM OR PLASMA 137 meq/L 136 - 145 04/02 Specimen Type: PLASMA Comment: No hemolysis noted. Ordering Provider: CAROLYN PRAKASH Report Released Date/Time: Apr 25, 2023 11:15 AM Reporting Lab: [address] [address] Performing Lab: [address] [address] [facility] COMPREHE NSIVE METABOLI C PANEL POTASSIUM [MOLES/VOL UME] IN SERUM OR PLASMA 4.3 meq/L 3.5 - 5 04/02 Specimen Type: PLASMA Comment: No hemolysis noted. Ordering Provider: CAROLYN PRAKASH Report Released Date/Time: Apr 25, 2023 11:15 AM Reporting Lab: [address] [address] Performing Lab: [place] [phone] [facility] COMPREHE NSIVE METABOLI C PANEL CHLORIDE [MOLES/VOL UME] IN SERUM OR PLASMA 106 meq/L 98 - 107 04/02 Specimen Type: PLASMA Comment: No hemolysis noted. Ordering Provider: CAROLYN PRAKASH Report Released Date/Time: Apr 25, 2023 11:15 AM Reporting Lab: [facility] [address] [facility] [address] Performing Lab: [facility] [address] [facility] [address] [facility] COMPREHE NSIVE METABOLI C PANEL CARBON DIOXIDE, TOTAL [MOLES/VOL UME] IN SERUM OR PLASMA 23 meq/L 22 - 31 04/02 Specimen Type: PLASMA Comment: No hemolysis noted. Ordering Provider: CAROLYN PRAKASH Report Released Date/Time: Apr 25, 2023 11:15 AM Reporting Lab: [facility] [address] [facility] [address] Performing Lab: [facility] [address] [facility] [address] [facility] COMPREHE NSIVE METABOLI C PANEL CALCIUM [MASS/VOLU ME] IN SERUM OR PLASMA 9.4 mg/dL 8.4 - 10.4 04/02 Specimen Type: PLASMA Comment: No hemolysis noted. Ordering Provider: CAROLYN PRAKASH Report Released Date/Time: Apr 25, 2023 11:15 AM Reporting Lab: [facility] [address] [facility] [address] Performing Lab: [facility] [address] [facility] [address] [facility] COMPREHE NSIVE METABOLI C PANEL PROTEIN [MASS/VOLU ME] IN SERUM OR PLASMA 7.2 g/dL 6 - 8.6 04/02 Specimen Type: PLASMA Comment: No hemolysis noted. Ordering Provider: CAROLYN PRAKASH Report Released Date/Time: Apr 25, 2023 11:15 AM Reporting Lab: [facility] [address] [facility] [address] Performing Lab: [facility] [address] [facility] [address] [facility] COMPREHE NSIVE METABOLI C PANEL ALBUMIN [MASS/VOLU ME] IN SERUM OR PLASMA 4.3 g/dL 3.4 - 5 04/02 Specimen Type: PLASMA Comment: No hemolysis noted. Ordering Provider: CAROLYN PRAKASH Report Released Date/Time: Apr 25, 2023 11:15 AM Reporting Lab: [address] [address] Performing Lab: [address] [phone] [place] [address] COMPREHE NSIVE METABOLI C PANEL BILIRUBIN. TOTAL [MASS/VOLU ME] IN SERUM OR PLASMA 1.1 mg/dL 0.2 - 1.2 04/02 Specimen Type: PLASMA Comment: No hemolysis noted. Ordering Provider: CAROLYN PRAKASH Report Released Date/Time: Apr 25, 2023 11:15 AM Reporting Lab: [address] [phone] Performing Lab: [address] [address] [facility] COMPREHE NSIVE METABOLI C PANEL ALKALINE PHOSPHATAS E [ENZYMATIC ACTIVITY/V OLUME] IN SERUM OR PLASMA 62 U/L 40 - 150 04/02 Specimen Type: PLASMA Comment: No hemolysis noted. Ordering Provider: CAROLYN PRAKASH Report Released Date/Time: Apr 25, 2023 11:15 AM Reporting Lab: [facility] [address] [place] [phone] Performing Lab: [address] [address] [facility] COMPREHE NSIVE METABOLI C PANEL ASPARTATE AMINOTRANS FERASE [ENZYMATIC ACTIVITY/V OLUME] IN SERUM OR PLASMA 33 U/L 5 - 34 04/02 Specimen Type: PLASMA Comment: No hemolysis noted. Ordering Provider: CAROLYN PRAKASH Report Released Date/Time: Apr 25, 2023 11:15 AM Reporting Lab: [address] [address] Performing Lab: [address] [address] [facility] COMPREHE NSIVE METABOLI C PANEL ALANINE AMINOTRANS FERASE [ENZYMATIC ACTIVITY/V OLUME] IN SERUM OR PLASMA 43 U/L 8 - 40 04/02 H Specimen Type: PLASMA Comment: No hemolysis noted. Ordering Provider: CAROLYN PRAKASH Report Released Date/Time: Apr 25, 2023 11:15 AM Reporting Lab: [address] [phone] Performing Lab: [address] [phone] [place] [address] COMPREHE NSIVE METABOLI C PANEL GLOMERULAR FILTRATION RATE/1.73 SQ M.PREDICTE D [VOLUME RATE/AREA] IN SERUM, PLASMA OR BLOOD BY CREATININE -BASED FORMULA (CKD-EPI 2020) 94.1 60 04/02 Specimen Type: PLASMA Comment: No hemolysis noted. Ordering Provider: CAROLYN PRAKASH Report Released Date/Time: Apr 25, 2023 11:15 AM Reporting Lab: [address] [address] Performing Lab: [address] [address] [facility] LIPID PANEL (STL) CHOLESTERO L [MASS/VOLU ME] IN SERUM OR PLASMA 204 mg/dL 0 - 200 04/02 H Specimen Type: PLASMA Comment: No hemolysis noted. Ordering Provider: CAROLYN PRAKASH Report Released Date/Time: Apr 25, 2023 11:15 AM Reporting Lab: [address] [address] Performing Lab: [address] [address] [facility] LIPID PANEL (STL) TRIGLYCERI DE [MASS/VOLU ME] IN SERUM OR PLASMA 152 mg/dL 0 - 150 04/02 H Specimen Type: PLASMA Comment: No hemolysis noted. Ordering Provider: CAROLYN PRAKASH Report Released Date/Time: Apr 25, 2023 11:15 AM Reporting Lab: [address] [address] Performing Lab: [address] [phone] [facility] LIPID PANEL (STL) CHOLESTERO L IN LDL [MASS/VOLU ME] IN SERUM OR PLASMA BY CALCULATIO N 134 mg/dL 04/02 Specimen Type: PLASMA Comment: No hemolysis noted. Ordering Provider: CAROLYN PRAKASH Report Released Date/Time: Apr 25, 2023 11:15 AM Reporting Lab: [address] [address] Performing Lab: [address] [address] [facility] LIPID PANEL (STL) CHOLESTERO L IN HDL [MASS/VOLU ME] IN SERUM OR PLASMA 40 mg/dL 40 04/02 Specimen Type: PLASMA Comment: No hemolysis noted. Ordering Provider: CAROLYN PRAKASH Report Released Date/Time: Apr 25, 2023 11:15 AM Reporting Lab: [address] [address] Performing Lab: [address] [address] [facility] CBC LEUKOCYTES [#/VOLUME] IN BLOOD BY AUTOMATED COUNT 9.7 10*3/uL 3.6 - 11.2 04/02 Specimen Type: BLOOD No comment entered. Ordering Provider: CAROLYN PRAKASH Report Released Date/Time: Apr 25, 2023 11:15 AM Reporting Lab: [address] [address] Performing Lab: [address] [address] [facility] CBC ERYTHROCYT ES [#/VOLUME] IN BLOOD BY AUTOMATED COUNT 5.34 10*6/uL 4.10 - 5.70 04/02 Specimen Type: BLOOD No comment entered. Ordering Provider: CAROLYN PRAKASH Report Released Date/Time: Apr 25, 2023 11:15 AM Reporting Lab: [address] [address] Performing Lab: [address] [phone] [place] [address] CBC HEMOGLOBIN [MASS/VOLU ME] IN BLOOD 15.4 g/dL 13.1 - 16.8 04/02 Specimen Type: BLOOD No comment entered. Ordering Provider: CAROLYN PRAKASH Report Released Date/Time: Apr 25, 2023 11:15 AM Reporting Lab: [address] [address] Performing Lab: [address] [phone] [place] [address] CBC HEMATOCRIT [VOLUME FRACTION] OF BLOOD 44.7 38.2 - 48.4 04/02 Specimen Type: BLOOD No comment entered. Ordering Provider: CAROLYN PRAKASH Report Released Date/Time: Apr 25, 2023 11:15 AM Reporting Lab: [address] [address] Performing Lab: [address] [address] [facility] CBC MCV [ENTITIC VOLUME] BY AUTOMATED COUNT 83.7 fL 80.0 - 100.0 04/02 Specimen Type: BLOOD No comment entered. Ordering Provider: CAROLYN PRAKASH Report Released Date/Time: Apr 25, 2023 11:15 AM Reporting Lab: [address] [address] Performing Lab: [address] [address] [facility] CBC MCH [ENTITIC MASS] BY AUTOMATED COUNT 28.8 pg 27.0 - 34.0 04/02 Specimen Type: BLOOD No comment entered. Ordering Provider: CAROLYN PRAKASH Report Released Date/Time: Apr 25, 2023 11:15 AM Reporting Lab: [facility] [address] [place] [phone] Performing Lab: [facility] [address] [place] [phone] [facility] CBC MCHC [MASS/VOLU ME] BY AUTOMATED COUNT 34.5 g/dL 33.0 - 36.0 04/02 Specimen Type: BLOOD No comment entered. Ordering Provider: CAROLYN PRAKASH Report Released Date/Time: Apr 25, 2023 11:15 AM Reporting Lab: [facility] [address] [place] [phone] Performing Lab: [facility] [address] [place] [phone] [place] [address] CBC PLATELETS [#/VOLUME] IN BLOOD BY AUTOMATED COUNT 274 10*3/uL 150 - 400 04/02 Specimen Type: BLOOD No comment entered. Ordering Provider: CAROLYN PRAKASH Report Released Date/Time: Apr 25, 2023 11:15 AM Reporting Lab: [facility] [address] [place] [phone] Performing Lab: [facility] [address] [place] [phone] [facility] CBC PLATELET MEAN VOLUME [ENTITIC VOLUME] IN BLOOD BY AUTOMATED COUNT 9.3 fL 7.5 - 11.2 04/02 Specimen Type: BLOOD No comment entered. Ordering Provider: CAROLYN PRAKASH Report Released Date/Time: Apr 25, 2023 11:15 AM Reporting Lab: [facility] [address] [place] [phone] Performing Lab: [facility] [address] [place] [phone] [place] [address] CBC ERYTHROCYT E DISTRIBUTI ON WIDTH [RATIO] BY AUTOMATED COUNT 13.0 11.8 - 15.1 04/02 Specimen Type: BLOOD No comment entered. Ordering Provider: CAROLYN PRAKASH Report Released Date/Time: Apr 25, 2023 11:15 AM Reporting Lab: [facility] [address] [facility] [address] Performing Lab: [facility] [address] [facility] [address] [facility] CBC LYMPHOCYTE S/100 LEUKOCYTES IN BLOOD BY AUTOMATED COUNT 26 04/02 Specimen Type: BLOOD No comment entered. Ordering Provider: CAROLYN PRAKASH Report Released Date/Time: Apr 25, 2023 11:15 AM Reporting Lab: [facility] [address] [facility] [address] Performing Lab: [facility] [address] [place] [phone] [facility] CBC MONOCYTES/ 100 LEUKOCYTES IN BLOOD BY AUTOMATED COUNT 7 04/02 Specimen Type: BLOOD No comment entered. Ordering Provider: CAROLYN PRAKASH Report Released Date/Time: Apr 25, 2023 11:15 AM Reporting Lab: [facility] [address] [facility] [address] Performing Lab: [facility] [address] [place] [phone] [facility] CBC NEUTROPHIL S/100 LEUKOCYTES IN BLOOD BY AUTOMATED COUNT 62 04/02 Specimen Type: BLOOD No comment entered. Ordering Provider: CAROLYN PRAKASH Report Released Date/Time: Apr 25, 2023 11:15 AM Reporting Lab: [facility] [address] [facility] [address] Performing Lab: [facility] [address] [facility] [address] [facility] CBC EOSINOPHIL S/100 LEUKOCYTES IN BLOOD BY AUTOMATED COUNT 3 04/02 Specimen Type: BLOOD No comment entered. Ordering Provider: CAROLYN PRAKASH Report Released Date/Time: Apr 25, 2023 11:15 AM Reporting Lab: [facility] [address] [place] [phone] Performing Lab: [facility] [address] [address] [facility] CBC BASOPHILS/ 100 LEUKOCYTES IN BLOOD BY AUTOMATED COUNT 1 04/02 Specimen Type: BLOOD No comment entered. Ordering Provider: CAROLYN PRAKASH Report Released Date/Time: Apr 25, 2023 11:15 AM Reporting Lab: [address] [address] Performing Lab: [address] [address] [facility] CBC LYMPHOCYTE S [#/VOLUME] IN BLOOD BY AUTOMATED COUNT 2.56 10*3/uL 0.77 - 4.50 04/02 Specimen Type: BLOOD No comment entered. Ordering Provider: CAROLYN PRAKASH Report Released Date/Time: Apr 25, 2023 11:15 AM Reporting Lab: [address] [address] Performing Lab: [address] [address] [facility] CBC MONOCYTES [#/VOLUME] IN BLOOD BY AUTOMATED COUNT 0.72 10*3/uL 0.19 - 0.80 04/02 Specimen Type: BLOOD No comment entered. Ordering Provider: CAROLYN PRAKASH Report Released Date/Time: Apr 25, 2023 11:15 AM Reporting Lab: [address] [address] Performing Lab: [address] [phone] [facility] CBC NEUTROPHIL S [#/VOLUME] IN BLOOD BY AUTOMATED COUNT 6.05 10*3/uL 2.10 - 8.00 04/02 Specimen Type: BLOOD No comment entered. Ordering Provider: CAROLYN PRAKASH Report Released Date/Time: Apr 25, 2023 11:15 AM Reporting Lab: [address] [address] Performing Lab: [address] [address] [facility] CBC EOSINOPHIL S [#/VOLUME] IN BLOOD BY AUTOMATED COUNT 0.24 10*3/uL 0.00 - 0.60 04/02 Specimen Type: BLOOD No comment entered. Ordering Provider: CAROLYN PRAKASH Report Released Date/Time: Apr 25, 2023 11:15 AM Reporting Lab: [place] [address] Performing Lab: [address] CBC BASOPHILS [#/VOLUME] IN BLOOD BY AUTOMATED COUNT 0.07 10*3/uL 0.00 - 0.20 04/02 Specimen Type: BLOOD No comment entered. Ordering Provider: CAROLYN PRAKASH Report Released Date/Time: Apr 25, 2023 11:15 AM Reporting Lab: [place] [address] Performing Lab: [address] PROST. SPECIFIC AG.(PB-S TL) PROSTATE SPECIFIC AG [MASS/VOLU ME] IN SERUM OR PLASMA 0.824 ng/mL 0 - 4 04/02 Specimen Type: SERUM Comment: The listed sex of this patient may not be a typical indication for this test. Therefore, reference ranges or interpretiv e criteria listed may not be valid. Clinical correlation suggested. Ordering Provider: CAROLYN PRAKASH Report Released Date/Time: Apr 25, 2023 11:15 AM Reporting Lab: [place] [address] Performing Lab: [address] HGA1C HEMOGLOBIN A1C/HEMOGL OBIN.TOTAL IN BLOOD 5.8 4.0 - 6.0 04/02 Specimen Type: BLOOD No comment entered. Ordering Provider: CAROLYN PRAKASH Report Released Date/Time: Apr 25, 2023 11:15 AM Reporting Lab: [address] [place] [address] Performing Lab: [facility] [address] [place] [phone] [facility] HGA1C HEMOGLOBIN A1C/HEMOGL OBIN.TOTAL IN BLOOD 5.7 4.0 - 6.0 05/09 Specimen Type: BLOOD No comment entered. Ordering Provider: CAROLYN PRAKASH Report Released Date/Time: May 09, 2022 12:43 PM Reporting Lab: [facility] [address] [place] [phone] Performing Lab: [address] [address] [facility] COMPREHE NSIVE METABOLI C PANEL CREATININE [MASS/VOLU ME] IN SERUM OR PLASMA 1.05 mg/dL 0.7 - 1.3 05/09 Specimen Type: PLASMA Comment: No hemolysis noted. Ordering Provider: CAROLYN PRAKASH Report Released Date/Time: May 09, 2022 12:43 PM Reporting Lab: [facility] [address] [place] [phone] Performing Lab: [facility] [address] [place] [phone] [facility] COMPREHE NSIVE METABOLI C PANEL UREA NITROGEN [MASS/VOLU ME] IN SERUM OR PLASMA 16.6 mg/dL 9.0 - 25.0 05/09 Specimen Type: PLASMA Comment: No hemolysis noted. Ordering Provider: CAROLYN PRAKASH Report Released Date/Time: May 09, 2022 12:43 PM Reporting Lab: [facility] [address] [place] [phone] Performing Lab: [facility] [address] [place] [phone] [facility] COMPREHE NSIVE METABOLI C PANEL GLUCOSE [MASS/VOLU ME] IN SERUM OR PLASMA 108 mg/dL 72 - 99 05/09 H Specimen Type: PLASMA Comment: No hemolysis noted. Ordering Provider: CAROLYN PRAKASH Report Released Date/Time: May 09, 2022 12:43 PM Reporting Lab: [facility] [address] [facility] [address] Performing Lab: [facility] [address] [facility] [address] [facility] COMPREHE NSIVE METABOLI C PANEL SODIUM [MOLES/VOL UME] IN SERUM OR PLASMA 137 meq/L 136 - 145 05/09 Specimen Type: PLASMA Comment: No hemolysis noted. Ordering Provider: CAROLYN PRAKASH Report Released Date/Time: May 09, 2022 12:43 PM Reporting Lab: [facility] [address] [facility] [address] Performing Lab: [facility] [address] [facility] [address] [facility] COMPREHE NSIVE METABOLI C PANEL POTASSIUM [MOLES/VOL UME] IN SERUM OR PLASMA 4.1 meq/L 3.5 - 5 05/09 Specimen Type: PLASMA Comment: No hemolysis noted. Ordering Provider: CAROLYN PRAKASH Report Released Date/Time: May 09, 2022 12:43 PM Reporting Lab: [facility] [address] [place] [phone] Performing Lab: [facility] [address] [facility] [address] [facility] COMPREHE NSIVE METABOLI C PANEL CHLORIDE [MOLES/VOL UME] IN SERUM OR PLASMA 103 meq/L 98 - 107 05/09 Specimen Type: PLASMA Comment: No hemolysis noted. Ordering Provider: CAROLYN PRAKASH Report Released Date/Time: May 09, 2022 12:43 PM Reporting Lab: [facility] [address] [place] [phone] Performing Lab: [facility] [address] [facility] [address] [facility] COMPREHE NSIVE METABOLI C PANEL CARBON DIOXIDE, TOTAL [MOLES/VOL UME] IN SERUM OR PLASMA 25 meq/L 22 - 31 05/09 Specimen Type: PLASMA Comment: No hemolysis noted. Ordering Provider: CAROLYN PRAKASH Report Released Date/Time: May 09, 2022 12:43 PM Reporting Lab: [facility] [address] [place] [phone] Performing Lab: [facility] [address] [facility] [address] [facility] COMPREHE NSIVE METABOLI C PANEL CALCIUM [MASS/VOLU ME] IN SERUM OR PLASMA 9.6 mg/dL 8.4 - 10.4 05/09 Specimen Type: PLASMA Comment: No hemolysis noted. Ordering Provider: CAROLYN PRAKASH Report Released Date/Time: May 09, 2022 12:43 PM Reporting Lab: [facility] [address] [place] [phone] Performing Lab: [facility] [address] [place] [phone] [facility] COMPREHE NSIVE METABOLI C PANEL PROTEIN [MASS/VOLU ME] IN SERUM OR PLASMA 7.4 g/dL 6 - 8.6 05/09 Specimen Type: PLASMA Comment: No hemolysis noted. Ordering Provider: CAROLYN PRAKASH Report Released Date/Time: May 09, 2022 12:43 PM Reporting Lab: [facility] [address] [facility] [address] Performing Lab: [facility] [address] [place] [phone] [facility] COMPREHE NSIVE METABOLI C PANEL ALBUMIN [MASS/VOLU ME] IN SERUM OR PLASMA 4.4 g/dL 3.4 - 5 05/09 Specimen Type: PLASMA Comment: No hemolysis noted. Ordering Provider: CAROLYN PRAKASH Report Released Date/Time: May 09, 2022 12:43 PM Reporting Lab: [facility] [address] [place] [phone] Performing Lab: [facility] [address] [place] [phone] [facility] COMPREHE NSIVE METABOLI C PANEL BILIRUBIN. TOTAL [MASS/VOLU ME] IN SERUM OR PLASMA 1.0 mg/dL 0.2 - 1.2 05/09 Specimen Type: PLASMA Comment: No hemolysis noted. Ordering Provider: CAROLYN PRAKASH Report Released Date/Time: May 09, 2022 12:43 PM Reporting Lab: [facility] [address] [place] [phone] Performing Lab: [address] [address] [facility] COMPREHE NSIVE METABOLI C PANEL ALKALINE PHOSPHATAS E [ENZYMATIC ACTIVITY/V OLUME] IN SERUM OR PLASMA 75 U/L 40 - 150 05/09 Specimen Type: PLASMA Comment: No hemolysis noted. Ordering Provider: CAROLYN PRAKASH Report Released Date/Time: May 09, 2022 12:43 PM Reporting Lab: [address] [phone] Performing Lab: [address] [phone] [facility] COMPREHE NSIVE METABOLI C PANEL ASPARTATE AMINOTRANS FERASE [ENZYMATIC ACTIVITY/V OLUME] IN SERUM OR PLASMA 26 U/L 5 - 34 05/09 Specimen Type: PLASMA Comment: No hemolysis noted. Ordering Provider: CAROLYN PRAKASH Report Released Date/Time: May 09, 2022 12:43 PM Reporting Lab: [address] [phone] Performing Lab: [address] [phone] [facility] COMPREHE NSIVE METABOLI C PANEL ALANINE AMINOTRANS FERASE [ENZYMATIC ACTIVITY/V OLUME] IN SERUM OR PLASMA 39 U/L 8 - 40 05/09 Specimen Type: PLASMA Comment: No hemolysis noted. Ordering Provider: CAROLYN PRAKASH Report Released Date/Time: May 09, 2022 12:43 PM Reporting Lab: [address] [address] Performing Lab: [address] [phone] [place] [address] COMPREHE NSIVE METABOLI C PANEL GLOMERULAR FILTRATION RATE/1.73 SQ M.PREDICTE D [VOLUME RATE/AREA] IN SERUM, PLASMA OR BLOOD BY CREATININE -BASED FORMULA (CKD-EPI 2020) 80.8 60 05/09 Specimen Type: PLASMA Comment: No hemolysis noted. Ordering Provider: CAROLYN PRAKASH Report Released Date/Time: May 09, 2022 12:43 PM Reporting Lab: [facility] [address] [place], [place] [phone] Performing Lab: [facility] [address] [place] [address] [phone] CBC LEUKOCYTES [#/VOLUME] IN BLOOD BY AUTOMATED COUNT 8.7 10*3/uL 3.6 - 11.2 05/09 Specimen Type: BLOOD No comment entered. Ordering Provider: CAROLYN PRAKASH Report Released Date/Time: May 09, 2022 12:43 PM Reporting Lab: [facility] [facility] [phone] Performing Lab: [facility] [facility] [phone] [place] [address] CBC ERYTHROCYT ES [#/VOLUME] IN BLOOD BY AUTOMATED COUNT 5.67 10*6/uL 4.10 - 5.70 05/09 Specimen Type: BLOOD No comment entered. Ordering Provider: CAROLYN PRAKASH Report Released Date/Time: May 09, 2022 12:43 PM Reporting Lab: [facility] [facility] [phone] Performing Lab: [facility] [facility] [phone] [place] [id number]|2024-11-29 13:53:00|2024-11-29 08:52:00|XMS_ITS|ONESIMO RAIN|External Medical Summaries|[id number]|" [place]MIN PAT ACTIVTIES (MASNONCT) [facility] Encounter Summary Created on: November 29, 2024 DOMINGO MELVIN : 1960 Sex: Male Author Name [facility] Organization [facility] ([place]) Address [address] [place] [address] Care Team Providers Care Food Service Name Role Phone CAROLYN PRAKASH Primary Care Provider Unavailabl e Selected Encounter This section includes the information on record at [place] for the Encounter. Date/Time Encounter Type Encounter Description Reason Provider Source Apr 11, 2024 11:13 AM Outpatient Encounter ADMIN PAT ACTIVTIES (MASNONCT) CAROLYN PRAKASH Radha Encounter Template Text not used by [place] Plan of Treatment: Future Appointments (+ 6 months) and Future Tests (+/- 45 days) The Plan of Treatment section includes future care activities for the patient from all [place] treatmentfacilities. This section includes future appointments and future orders which are active, pending or scheduled. Future Appointments This section includes appointments that were scheduled to occur 6 months from the date of the Encounter, up to a maximum of 20 appointments. The data comes from all [place] treatment facilities. Appointment Date/Time Appointment Type Appointme nt Facility Name May 28, 2024 09:30 AM AMBULATORY - MEDICINE [facility] Lab Results: +/- 30 days of the encounter This section includes the Chemistry and Hematology Lab Results on record with [place] for the patient. Radiology Reports and Pathology Reports are provided separately, in subsequent sections. Lab Results This section contains the Chemistry/Hematology Results that were resulted 30 days before or 30 daysafter the date of the Encounter. Date/Time Source Result Type Result - Unit Interpretation Reference Range Specimen Type Comment Apr 13, 2024 12:00 PM [facility] OCCULT BLOOD FIT X1 SCREEN FECES Specimen Typ e: FECES No comment entered. Ordering Provider: CAROLYN PRAKASH Report Released Date/Time: Apr 05, 2024 11:33 AM Reporting Lab: [facility] [address] [facility] [address] Performing Lab: [address] [address] OCCULT BLOOD (FIT) #1 OF 1 Negative Nega tive Apr 02, 2024 09:18 AM [facility] TSH (MA-PB) SERUM Specimen Type: SERUM Comment: The listed sex of this patient may not be a typical indication for this test. Therefore, reference ranges or interpretive criteria listed may not be valid. Clinical correlation suggested. Ordering Provider: CAROLYN PRAKASH Report Released Date/Time: Apr 25, 2023 11:15 AM Reporting Lab: [facility] [address] [facility] [address] Performing Lab: [address] [address] TSH 1.671 u[IU]/mL 0.47-5 Apr 02, 2024 09:18 AM [facility] COMPREHENSIVE METABOLIC PANEL PLASMA Specimen Type: PLASMA Comment: No hemolysis noted. Ordering Provider: CAORLYN PRAKASH Report Released Date/Time: Apr 25, 2023 11:15 AM Reporting Lab: [facility] [address] [facility] [address] Performing Lab: [address] [phone] CREATININE 0.92 mg/dL 0.7-1.3 UREA NITROGEN 16.5 mg/dL 9.0-25.0 GLUCOSE 110 mg/dL H 72-99 SODIUM 137 meq/L 136-145 POTASSIUM 4.3 meq/L 3.5-5 CHLORIDE 106 meq/L 98-107 CARBON DIOXIDE 23 meq/L 22-31 CALCIUM 9.4 mg/dL 8.4-10.4 PROTEIN 7.2 g/dL 6-8.6 ALBUMIN 4.3 g/dL 3.4-5 TOTAL BILIRUBIN 1.1 mg/dL 0.2-1.2 ALKALINE PHOSPHATASE 62 U/L 40-150 AST/SGOT 33 U/L 5-34 ALT/SGPT 43 U/L H 8-40 EGFR (CKD-EPI 2020) 94.1 >60 Apr 02, 2024 09:18 AM [facility] CBC BLOOD Specimen Type: BLOOD No comment entered. Ordering Provider: CAROLYN PRAKASH Report Released Date/Time: Apr 25, 2023 11:15 AM Reporting Lab: [facility] [address] [facility] [address] Performing Lab: [facility] [address] [place] [phone] WBC 9.7 10*3/uL 3.6-11.2 RBC 5.34 10*6/uL 4.10-5.70 HGB 15.4 g/dL 13.1-16.8 HCT 44.7 38.2-48.4 MCV 83.7 fL 80.0-100.0 MCH 28.8 pg 27.0-34.0 MCHC 34.5 g/dL 33.0-36.0 PLT 274 10*3/uL 150-400 MPV 9.3 fL 7.5-11.2 RDW 13.0 11.8-15.1 LYMPHOCYTES, AUTO % 26 MONOCYTES, AUTO % 7 NEUTROPHILS, AUTO % 62 EOSINOPHILS, AUTO % 3 BASOPHILS, AUTO % 1 LYMPHOCYTES, ABSOLUTE 2.56 10*3/uL 0.77- 4.50 MONOCYTES, ABSOLUTE 0.72 10*3/uL 0.19-0. 80 NEUTROPHILS, ABSOLUTE 6.05 10*3/uL 2.10- 8.00 EOSINOPHILS, ABSOLUTE 0.24 10*3/uL 0.00- 0.60 BASOPHILS, ABSOLUTE 0.07 10*3/uL 0.00-0. 20 Apr 02, 2024 09:18 AM [facility] LIPID PANEL (STL) PLASMA Specimen Type: PLASM A Comment: No hemolysis noted. Ordering Provider: CAROLYN PRAKASH Report Released Date/Time: Apr 25, 2023 11:15 AM Reporting Lab: [facility] [address] [facility] [address] Performing Lab: [facility] [address] [place] [phone] CHOLESTEROL 204 mg/dL H 0-200 TRIGLYCERIDE 152 mg/dL H 0-150 CALCULATED LDL 134 mg/dL HDL([facility]) 40 mg/dL >40 Apr 02, 2024 09:18 AM [facility] PROST. SPECIFIC AG.(PB-STL) SERUM Specimen Ty pe: SERUM Comment: The listed sex of this patient may not be a typical indication for this test. Therefore, reference ranges or interpretive criteria listed may not be valid. Clinical correlation suggested. Ordering Provider: CAROLYN PRAKASH Report Released Date/Time: Apr 25, 2023 11:15 AM Reporting Lab: [place] [id number] [facility] [address] Performing Lab: [facility] [address] [facility] [facility] [address] PROST. SPECIFIC AG.(PB-STL) 0.824 ng/mL 0-4 Apr 02, 2024 09:18 AM [facility] HGA1C BLOOD Specimen Type: BLOOD No comment entered. Ordering Provider: CAROLYN PRAKASH Report Released Date/Time: Apr 25, 2023 11:15 AM Reporting Lab: [facility] [address] [facility] [address] Performing Lab: [place] [address] [facility] [address] HGA1C 5.8 4.0-6.0 Social History: Smoking Status (Most current) and Tobacco Use (All prior to encounter date) This section includes the most current, and the historical, smoking and tobacco- related health factors from the [place] facility where the Encounter took place. Current Smoking Status This section includes the most current smoking, or tobacco-related health factor, from the [place] facility where the Encounter took place. Date/Time Current Smoking Status Comment Facil gian Dec 18, 2006 09:44 AM QUIT TOBACCO >7 YEARS AGO [facility] Encounter Notes: All associated encounter notes This section contains the clinical notes associated to the Encounter. Date/Time Encounter Note(s) Provider Source Apr 11, 2024 11:13 AM PHYSICIAN LETTERS: LOCAL TITLE: NO CONTACT LETTER STL STANDARD TITLE: PHYSICIAN LETTERS DATE OF NOTE: APR 11, 2024@11:13 ENTRY DATE: APR 11, 2024@11:13:48 AUTHOR: ARIEL ACOSTA EXP COSIGNER: URGENCY: STATUS: COMPLETED [facility] [address] [place] [address] APR 11, 2024 DOMINGO MELVIN [address] [place] [address] Dear Domingo Melvin, Thank you for choosing the [facility] as your primary choice for health care. As a partner in your health care, we are attempting to contact you because we have been unsuccessful in reaching you by phone to schedule your clinic appointment. Please call us at [phone], [phone] to speak to us regarding making an appointment in the [facility] clinic. Your good health is important to us. Please contact us within 2 weeks from the date of this letter. If we do not hear from you, we will notify your referring provider and a new referral will be required to schedule an appointment. IMPORTANT: Due to COVID-19 we have greatly expanded our telehealth options, please contact the clinic to inquire about scheduling. Sincerely, ARIEL ACOSTA [employer] MACHINE OPERATOR DOMINGO MELVIN [facility] A [facility] "
[2024-11-29 14:30] LABS: Hematocrit 46.4 % (42.0-52.0); Mean Corpuscular HGB Conc 32.3 g/dl (32-36); Mean Corpuscular Hemoglobin 28.1 pg (26-34); Mean Corpuscular Volume 87.1 fl (80-100); Mean Platelet Volume 9.7 fl (7.4-10.4); Platelet Count Result 288 k/mm3 (150-375); Red Blood Count 5.33 M/mm3 (4.6-6.20); Red Cell Distribution Width 13.6 % (11.5-14.5); White Blood Count 10.8 K/mm3 (4.5-10.0)
[2024-11-29 14:40] LABS: Alanine Aminotransferase 44 U/L (6-50); Albumin Level 4.5 g/dL (3.5-5.1); Alkaline Phosphatase 51 U/L (38-126); Anion Gap 9 mmol/L (4-12); Aspartate Amino Transferase 38 U/L (17-59); Bilirubin,Total 0.6 mg/dL (0.2-1.3); Blood Urea Nitrogen 22 mg/dL (9-20); Calcium 9.3 mg/dL (8.4-10.2); Carbon Dioxide 24 mmol/L (22-30); Chloride 105 mmol/L (98-107); Estimated Glomerular Filt Rate > 60; Glucose 101 mg/dL (65-110); Potassium 4.1 mmol/L (3.4-5.0); Sodium 138 mmol/L (137-145)
== END 2024-11-29 13:40 | disposition home or self-care (01) ==
PROVIDERS: PCP Family Medicine
DX: Z01.818 Encounter for other preprocedural examination (principal)
CPT/HCPCS: 36415; 80053; 85027; 93005